=== PATIENT | male | born 1985 | race Caucasian/White ===

== ENCOUNTER 2017-04-20 11:25 | Emergency (ER) | payer OTHER ==
[~2017-04-20] VITALS: Ht 188 cm; Wt 113.4 kg
[~2017-04-20 11:25] MED LIST: ALEVE220 MG PO; ASPIRIN325 PO; HYDROCODON-ACE1 EAC7 PO
[2017-04-20 11:55] LABS: ABSOLUTE EOSINOPHILS 0.2 thou/uL (0.0-0.7); ABSOLUTE LYMPHOCYTES 1.7 thou/uL (0.8-5.3); ABSOLUTE MONOCYTES 0.4 thou/uL (0.0-1.2); HEMOGLOBIN 15.1 gm/dL (14.0-18.0); RDW-CV 13.7 % (10.5-14.5)
[2017-04-20 11:57] LABS: ABSOLUTE BASOPHILS 0.1 thou/uL (0.0-0.2); ABSOLUTE NEUTROPHILS 3.7 thou/uL (1.6-8.1)
[2017-04-20 12:00] LABS: BASOPHILS 1.6 %; EOSINOPHILS 2.5 %; HEMATOCRIT 44.8 % (42.0-52.0); LYMPHOCYTES 27.8 %; MCH 28.2 pg (26.0-34.0); MCHC 33.6 g/dL (28.0-37.0); MCV 83.8 fL (80.0-100.0); MONOCYTES 7.2 %; MPV 7.8 fl. (7.2-11.1); NUCLEATED RBCS 0 /100WBC; PLATELET COUNT* 210 thou/uL (150-400); POLYS 60.9 %; RBC 5.35 mil/uL (4.50-6.00)
[2017-04-20 12:05] LABS: ANION GAP 8 mmol/L (7-16); BUN 16 mg/dL (7-18); CALCIUM 9.1 mg/dL (8.5-10.1); CHLORIDE 104 mmol/L (98-107); CO2 29 mmol/L (21-32); CREATININE 1.1 mg/dL (0.6-1.3); GLUCOSE 96 mg/dL (70-99); POTASSIUM 3.8 mmol/L (3.5-5.1); SODIUM 141 mmol/L (136-145)
[2017-04-20 12:25] LABS: ALBUMIN 4.1 g/dL (3.4-5.0); ALKALINE PHOSPHATASE 104 U/L (46-116); CK-MB MASS < 0.5 ng/mL (<0.5-3.6); LIPASE 128 U/L (73-393); MAGNESIUM 1.9 mg/dL (1.8-2.4); NT-PRO BRAIN NAT PEPTIDE 50 pg/mL (<300); SGOT 17 U/L (15-37); SGPT 39 U/L (30-65); TOTAL BILIRUBIN 0.6 mg/dL (<0.1-1.0); TOTAL PROTEIN 7.6 g/dL (6.4-8.2); TROPONIN-I LEVEL <0.06 ng/mL (<0.06)
[2017-04-20 12:26] LABS: APTT 30.3 Seconds (25.0-31.3); INR 1.1; PROTIME 10.6 Seconds (9.20-11.50)
[2017-04-20 12:42] VITALS: BP 113/75
--- NOTE | 2017-04-20 14:49 | EKG ---
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
== END 2017-04-20 12:44 | disposition home or self-care (01) ==
LOC: M.ERS 11:25
PROVIDERS: Family Medicine
DX: M25.512 Pain in left shoulder (principal); J45.909 Unspecified asthma, uncomplicated; Z87.891 Personal history of nicotine dependence